=== PATIENT | male | born 1945 | race Caucasian/White ===

== ENCOUNTER 2019-01-23 12:07 | Inpatient (IN) | payer OTHER ==
[2019-01-23] MEDS ORDERED: ACETAMINOPHEN 325 MG TABLET PO PRN (12:36)
[2019-01-23] MEDS ORDERED: DIPHENHYDRAMINE 25 MG TAB/CAP PO PRN (12:36)
[2019-01-23] MEDS ORDERED: ONDANSETRON 4 MG (ODT) TAB PO PRN (12:37)
[2019-01-23] MEDS ORDERED: ONDANSETRON 4 MG/2 ML VIAL IV PRN (12:37)
[2019-01-23] MEDS ORDERED: POLYETHYL GLY 3350 17 GM/DOSE PO PRN (12:37)
[2019-01-23] MEDS ORDERED: CIPROFLOXACIN 400mg IV 400 MG/200 ML BAG IV SCH (13:00)
[2019-01-23 13:45] LABS: Protime INR 1.25
[2019-01-23 13:46] LABS: Absolute Monocytes 0.9 K/uL (0.1-1.3); Absolute Neutrophil 10.3 K/uL (1.8-8.0); Basophils % 0.2 % (0-1.3); Hematocrit 40.8 % (39.6-49.0); Lymphocytes % 7.8 % (15.3-44.8); MPV 8.3 fL (7.6-11.3); Monocytes % 7.7 % (3.3-12.3); RBC Red Blood Cell Count 4.61 M/uL (4.33-5.43)
[2019-01-23] MEDS: NACHLORIDE 0.45% 1,000 ML IV SCH ×2 (13:46→19:40)
[2019-01-23 14:29] LABS: Albumin 3.3 g/dL (3.4-5.0); Bilirubin Direct 0.3 mg/dL (0-0.2); Bilirubin Total 4.7 mg/dL (0.2-1.0); Phosphorus 1.4 mg/dL (2.5-4.9); Protein, Total 7.2 g/dL (6.4-8.2); Thyroid Stimulating Hormone 1.43 uIU/mL (0.360-3.740)
[2019-01-23 14:35] LABS: Potassium 2.9 mmol/L (3.5-5.1)
[2019-01-23 14:41] LABS: Blood Morphology Comment NOT SEEN (NOT SEEN); Platelet Estimate ADEQ
[2019-01-23] MEDS ORDERED: KCL 20 MEQ/100 mL IVPB 20 MEQ/100 ML BAG IV SCH ×2 (15:00)
--- NOTE | 2019-01-23 16:35 | RAD REPORT ---
EXAM DESCRIPTION: RAD - Chest Pa And Lat (2 Views) - 01/23/2019 3:13 pm CLINICAL HISTORY: FEVER, ABD PAIN Chest pain. COMPARISON: No comparisons FINDINGS: Moderate airspace opacity is seen in the posterior right lung base, likely representing pn eumonia. The lungs are emphysematous. The heart is normal in size. No displaced fractures. IMPRESSION: Moderate right posterior base pneumonia.
--- NOTE | 2019-01-23 16:48 | RAD REPORT ---
EXAM DESCRIPTION: CTAbdomen Pelvis W Contrast - 01/23/2019 3:22 pm CLINICAL HISTORY: Abdominal pain. ABD PAIN; COMPARISON: Abdomen Pelvis W Contrast dated 05/02/2018; Abdomen Pelvis W Contrast dated 05/16/2016 TECHNIQUE: Biphasic CT imaging of the abdomen and pelvis was performed with 100 ml non-ionic IV cont rast. All CT scans are performed using dose optimization technique as appropriate and may include automated exposure control or mA/KV adjustment according to patient size. FINDINGS: Moderate airspace opacity is seen in the posterior right lower lobe, most compatible with pneumonia. Diffuse fatty liver is present. Small benign left lobe liver cyst present. The spleen, pancreas, adre nal glands normal. Bilateral renal cysts without hydronephrosis present. The largest cyst is on the l eft measuring 2.6 cm. No bowel obstruction, free air, free fluid or abscess. The appendix is normal. No evidence of signi ficant lymphadenopathy. No suspicious bony findings. IMPRESSION: Moderate airspace opacity in the posterior right lung base most compatible with pneumoni a. Fatty liver.
[2019-01-23] MEDS ORDERED: METRONIDAZOLE 500mg IVPB 500 MG/100 ML BAG IV SCH (17:00)
[2019-01-23] MEDS ORDERED: NA CHLORIDE 0.9% IV ONE ×2 (17:00)
[2019-01-23] MEDS ORDERED: POTASSIUM CL IV ONE ×2 (17:00)
[2019-01-23] MEDS: ENOXAPARIN 40 MG/0.4 ML SQ SCH (18:19)
[2019-01-23 20:18] LABS: Urine Appearance CLEAR; Urine Bilirubin NEGATIVE (NEG); Urine Blood TRACE (NEG); Urine Color YELLOW; Urine Glucose NEGATIVE (NEG); Urine Protein NEGATIVE (NEG); Urine Specific Gravity >=1.030 (1.005-1.030); Urine Urobilinogen 0.2 mg/dL (0.2-1.0)
[2019-01-23 20:19] LABS: Urine Microscopic Reflex ORDER UMIC
[2019-01-23 20:32] LABS: Urine Amorphous Sediment 1+ /HPF (NONE SEEN); Urine Bacteria NONE SEEN /HPF (NONE SEEN); Urine Culture Reflex Order NOT NEEDED; Urine RBC <5 /HPF (NONE SEEN)
[2019-01-23] MEDS ORDERED: TAMSULOSIN 0.4 MG SR CAP PO SCH (21:00)
[2019-01-23] MEDS ORDERED: CEFTRIAXONE 1 GM/50 ML BAG IV SCH (21:00)
[2019-01-23] MEDS: LOPERAMIDE HCL 2 MG CAPSULE PO PRN (22:02)
[2019-01-23] MEDS: CARVEDILOL 6.25 MG TAB PO SCH (22:02)
[2019-01-23] MEDS: ASPIRIN EC 81 MG TAB PO SCH (22:02)
[2019-01-23] MEDS ORDERED: AZITHROMYCIN 500 MG INJ IVPB ONE (22:18)
[2019-01-23] MEDS ORDERED: NA CHLORIDE 0.9% 250 ML ONE (22:23)
[2019-01-23] MEDS: CEFTRIAXONE/SWI 1gm 1 GM/10 ML SYR IV SCH (22:27)
[2019-01-23] MEDS: AZITHROMYCIN IV 500 MG in NA CHLORIDE 0.9% 250 ML IVPB SCH (23:06)
[2019-01-24] MEDS: NACHLORIDE 0.45% 1,000 ML IV SCH ×4 (02:20→22:20)
[2019-01-24 05:44] LABS: Absolute Lymphocytes (CBC) 1.4 K/uL (0.7-4.9); Absolute Monocytes 1.2 K/uL (0.1-1.3); Absolute Neutrophil 8.4 K/uL (1.8-8.0); Basophils % 0.3 % (0-1.3); Eosinophils % 0.5 % (0-4.4); Hematocrit 36.5 % (39.6-49.0); Lymphocytes % 12.8 % (15.3-44.8); MPV 8.8 fL (7.6-11.3); Monocytes % 10.9 % (3.3-12.3); RBC Red Blood Cell Count 4.08 M/uL (4.33-5.43)
[2019-01-24] MEDS: CARVEDILOL 6.25 MG TAB PO SCH ×2 (06:22→17:52)
[2019-01-24 06:41] LABS: Potassium 2.9 mmol/L (3.5-5.1)
--- NOTE | 2019-01-24 06:44 | EKG ---
Test Date: 2019-01-23 Test Time: 13:14:15 Manager Cath Lab: [facility] MEASUREMENT RESULTS: Intervals: Rate: 86 TN: 136 QRSD: 98 QT: 370 QTc: 442 Surprise: P: 32 TN: 136 QRS: -27 T: 21 INTERPRETIVE STATEMENTS: Normal sinus rhythm Normal ECG No previous ECG available for comparison Electronically Signed On 01-24-19 06:42:29 CDT by Rito Javier
[2019-01-24] MEDS: KCL 20 MEQ/100 mL IVPB 20 MEQ/100 ML BAG IV SCH ×3 (07:42→12:20)
[2019-01-24] MEDS: LOPERAMIDE HCL 2 MG CAPSULE PO PRN ×2 (09:01→21:20)
--- NOTE | 2019-01-24 14:37 | P.PN ---
Subjective Date of Service: 01/24/19 Chief Complaint: DIZZY WHEN HE EATS. COUGH STARTED LAST NIGHT. Subjective: Improving GEORGES IS DOING A LOT BETTER. HE DID NOT HAVE COUGH UNTIL HE CAME HERE. HE HAS SOME MUCUS IN STOOL. Review of Systems 10-point ROS is otherwise unremarkable General: Weakness, Malaise Respiratory: Cough Physical Examination - Vital Signs Temperature: 99.4 F Blood Pressure: 115/61 Pulse: 56 Respirations: 18 Pulse Ox (%): 97 - Physical Exam General: Alert, Acute distress, Mild distress, Obese HEENT: Atraumatic, PERRLA, EOMI Neck: Supple, JVD not distended Respiratory: Clear to auscultation bilaterally, Normal air movement Cardiovascular: Regular rate/rhythm, Normal S1 S2 Gastrointestinal: Normal bowel sounds, No tenderness Musculoskeletal: No tenderness Integumentary: No rashes Neurological: Normal speech, Normal tone, Normal affect Lymphatics: No axilla or inguinal lymphadenopathy - Studies Laboratory Data (last 24 hrs) 01/24/19 04:48: Potassium Cancelled 01/24/19 04:48: Sodium 139, Potassium 2.9 L*, BUN 25 H, Creatinine 1.46 H, Glucose 110 H, Magnesium 2.0 01/24/19 04:48: WBC 11.1 H, Hgb 12.5 L, Hct 36.5 L, Plt Count 183 01/23/19 23:00: Potassium Cancelled 01/23/19 20:00: Potassium Cancelled 01/23/19 13:05: Sodium 138, Potassium 2.9 L*, BUN 20 H, Creatinine 1.53 H, Glucose 165 H, Phosphorus 1.4 L, Magnesium 2.0, Total Bilirubin 4.7 H, AST 14 L , ALT 15, Alkaline Phosphatase 63 Microbiology Data (last 24 hrs): 01/23/19 17:30 Stool Clostridium difficile Toxin Assay - Final Medications List Reviewed: Yes Assessment And Plan - Current Problems (Diagnosis) (1) Bacterial pneumonia Current Visit: Yes Status: Acute Plan: UNUSUAL PRESENTATION WITH RUQ ABDOMEN PAIN. HEHAD NO COUGH UNTIL AFTER ADMISSION. LAST NIGHT I CHANGED ABX TO COVER LUNGS. STABLE (2) Abdominal pain, RUQ Current Visit: Yes Status: Acute Plan: CT SCAN SHOWS NO ABDOMEN ISSUES. R LOWER PNEUMONIA CAN HURT IN RUQ ABDOMEN PAIN. (3) Hypokalemia Current Visit: Yes Status: Acute Plan: K REPLACED.
[2019-01-24] MEDS: ENOXAPARIN 40 MG/0.4 ML SQ SCH (17:52)
[2019-01-24] MEDS ORDERED: POTASSIUM 25 MEQ EFFERV TAB PO ONE (18:00)
[2019-01-24] MEDS: TAMSULOSIN 0.4 MG SR CAP PO SCH (21:00)
[2019-01-24] MEDS: ASPIRIN EC 81 MG TAB PO SCH (21:20)
[2019-01-24] MEDS: AZITHROMYCIN IV 500 MG in NA CHLORIDE 0.9% 250 ML IVPB SCH (21:21)
[2019-01-24] MEDS: CEFTRIAXONE/SWI 1gm 1 GM/10 ML SYR IV SCH (21:21)
[2019-01-25] MEDS ORDERED: POTASSIUM 25 MEQ EFFERV TAB PO ONE ×2 (01:43→09:00)
[2019-01-25] MEDS: NACHLORIDE 0.45% 1,000 ML IV SCH ×3 (02:18→23:33)
[2019-01-25] MEDS: CARVEDILOL 6.25 MG TAB PO SCH ×2 (05:47→18:00)
[2019-01-25 06:25] LABS: Absolute Lymphocytes (CBC) 1.3 K/uL (0.7-4.9); Absolute Neutrophil 6.4 K/uL (1.8-8.0); Basophils % 0.4 % (0-1.3); Eosinophils % 2.1 % (0-4.4); Hematocrit 36.1 % (39.6-49.0); Lymphocytes % 14.8 % (15.3-44.8); MPV 8.9 fL (7.6-11.3); Monocytes % 11.5 % (3.3-12.3); RBC Red Blood Cell Count 4.09 M/uL (4.33-5.43)
[2019-01-25 06:43] LABS: Magnesium 2.3 mg/dL (1.8-2.4); Potassium 3.6 mmol/L (3.5-5.1)
[2019-01-25] MEDS: LOPERAMIDE HCL 2 MG CAPSULE PO PRN (08:45)
[2019-01-25] MEDS ORDERED: SODIUM CHLORIDE 0.9% 10ML INJ IV PRN (10:23)
--- NOTE | 2019-01-25 10:23 | P.PN ---
Subjective Date of Service: 01/25/19 Chief Complaint: DIZZY WHEN HE EATS. COUGH STARTED LAST NIGHT. Subjective: New changes, C/O voiced (BLACK DIARRHEA. COUGH IS BETTER.) GEORGES IS DOING A LOT BETTER. HE DID NOT HAVE COUGH UNTIL HE CAME HERE. HE HAS SOME MUCUS IN STOOL. Review of Systems 10-point ROS is otherwise unremarkable General: Weakness Gastrointestinal: Abdominal Pain (RUQ AND LLQ.) Physical Examination - Vital Signs Temperature: 99.1 F Blood Pressure: 126/65 Pulse: 76 Respirations: 18 Pulse Ox (%): 96 - Physical Exam General: Alert, Mild distress HEENT: Atraumatic, PERRLA, EOMI Neck: Supple, JVD not distended Respiratory: Clear to auscultation bilaterally, Normal air movement Cardiovascular: Regular rate/rhythm, Normal S1 S2 Gastrointestinal: Normal bowel sounds, No tenderness Musculoskeletal: No tenderness Integumentary: No rashes Neurological: Normal speech, Normal tone, Normal affect Lymphatics: No axilla or inguinal lymphadenopathy - Studies Laboratory Data (last 24 hrs) 01/25/19 05:42: Sodium 142, Potassium 3.6, BUN 15, Creatinine 1.04, Glucose 106 , Magnesium 2.3 01/25/19 05:42: WBC 8.9 D, Hgb 12.7 L, Hct 36.1 L, Plt Count 217 01/25/19 01:25: Potassium 3.5 01/24/19 16:20: Potassium 3.4 L Microbiology Data (last 24 hrs): 01/23/19 17:30 Stool Clostridium difficile Toxin Assay - Final Medications List Reviewed: Yes Assessment And Plan - Current Problems (Diagnosis) (1) Bacterial pneumonia Current Visit: Yes Status: Acute Plan: UNUSUAL PRESENTATION WITH RUQ ABDOMEN PAIN. HEHAD NO COUGH UNTIL AFTER ADMISSION. LAST NIGHT I CHANGED ABX TO COVER LUNGS. STABLE CLINICALLY STABLE. NO MAJOR SYMPTOMS FROM THIS EXCEPT FOR RUQ ABDOMEN PAIN. RESUME ABX., (2) Abdominal pain, RUQ Current Visit: Yes Status: Acute Plan: CT SCAN SHOWS NO ABDOMEN ISSUES. R LOWER PNEUMONIA CAN HURT IN RUQ ABDOMEN PAIN. (3) Hypokalemia Current Visit: Yes Status: Acute Plan: K REPLACED. (4) Diarrhea Current Visit: Yes Status: Acute Plan: BLACK COLORED. IV PROTONIX. CONSULT DR. PATINO. RULE OUT GI BLEED. NO SIGNS OF ANY ACUTE ISSUES ON CT SCAN.
[2019-01-25] MEDS: PANTOPRAZOLE 40 MG INJ IVP SCH (14:12)
[2019-01-25] MEDS: CEFTRIAXONE/SWI 1gm 1 GM/10 ML SYR IV SCH (20:14)
[2019-01-25] MEDS: AZITHROMYCIN IV 500 MG in NA CHLORIDE 0.9% 250 ML IVPB SCH (20:14)
[2019-01-25] MEDS: TAMSULOSIN 0.4 MG SR CAP PO SCH (20:15)
[2019-01-26] MEDS: CARVEDILOL 6.25 MG TAB PO SCH (05:31)
[2019-01-26 06:21] LABS: Absolute Lymphocytes (CBC) 1.4 K/uL (0.7-4.9); Absolute Monocytes 1.2 K/uL (0.1-1.3); Absolute Neutrophil 5.4 K/uL (1.8-8.0); Basophils % 0.3 % (0-1.3); Eosinophils % 2.3 % (0-4.4); Hematocrit 38.1 % (39.6-49.0); Lymphocytes % 17.3 % (15.3-44.8); MPV 8.5 fL (7.6-11.3); Monocytes % 14.2 % (3.3-12.3)
[2019-01-26 06:32] LABS: Magnesium 2.3 mg/dL (1.8-2.4); Potassium 3.1 mmol/L (3.5-5.1)
[2019-01-26] MEDS ORDERED: POTASSIUM 25 MEQ EFFERV TAB PO ONE ×2 (06:46→09:00)
[2019-01-26] MEDS ORDERED: PANTOPRAZOLE 40 MG INJ IVP SCH (09:00)
[2019-01-26] MEDS: PANTOPRAZOLE 40 MG INJ IVP SCH (09:50)
--- NOTE | 2019-01-28 17:45 | P.DS ---
Admission Date: 01/24/19 Discharge Date: 01/28/19 Disposition: ROUTINE DISCHARGE Discharge Condition: FAIR Reason for Admission: DIZZY WHEN HE EATS. COUGH STARTED LAST NIGHT. - Problems (1) Bacterial pneumonia Status: Acute (2) Abdominal pain, RUQ Status: Acute (3) Hypokalemia Status: Acute (4) Diarrhea Status: Acute Hospital Course: MR. WAY IS DOING GREAT. HE WILL CONTINUE LEVAQUIN AT HOME FOR ABX FOR PNEUMONIA. HIS DIARRHEA HAS RESOLVED. Vital Signs/Physical Exam: Temp Pulse Resp BP Pulse Ox 99.9 F 72 16 143/65 H 94 01/26/19 16:00 01/26/19 16:00 01/26/19 16:00 01/26/19 16:00 01/26/19 16:00 Laboratory Data at Discharge: WBC 8.2 K/uL (4.3-10.9) 01/26/19 05:35 Hgb 13.6 g/dL (13.6-17.9) 01/26/19 05:35 Hct 38.1 % (39.6-49.0) L 01/26/19 05:35 Plt Count 246 K/uL (152-406) 01/26/19 05:35 PT 14.6 SECONDS (9.5-12.5) H 01/23/19 13:05 INR 1.25 01/23/19 13:05 APTT 28.6 SECONDS (24.3-36.9) 01/23/19 13:05 Sodium 142 mmol/L (136-145) 01/26/19 05:35 Potassium 3.8 mmol/L (3.5-5.1) 01/26/19 14:57 BUN 9 mg/dL (7-18) 01/26/19 05:35 Creatinine 1.00 mg/dL (0.55-1.3) 01/26/19 05:35 Glucose 102 mg/dL (74-106) 01/26/19 05:35 Phosphorus 1.4 mg/dL (2.5-4.9) L 01/23/19 13:05 Magnesium 2.3 mg/dL (1.8-2.4) 01/26/19 05:35 Total Bilirubin 4.7 mg/dL (0.2-1.0) H 01/23/19 13:05 AST 14 U/L (15-37) L 01/23/19 13:05 ALT 15 U/L (12-78) 01/23/19 13:05 Alkaline Phosphatase 63 U/L (45-117) 01/23/19 13:05 Home Medications: Carvedilol [Coreg*] 6.25 mg PO BID 04/27/15 Tamsulosin [Flomax*] 1 tab PO BEDTIME 01/23/19 Losartan Potassium 100 mg PO DAILY #90 tablet 01/26/19 levoFLOXacin [Levaquin*] 500 mg PO DAILY #10 tab 01/26/19 New Medications: levoFLOXacin [Levaquin*] 500 mg PO DAILY #10 tab Losartan Potassium 100 mg PO DAILY #90 tablet Followup: Timur Zhou MD [Primary Care Provider] - (call to schedule appointment)
== END 2019-01-26 18:04 | disposition home or self-care (01) | DRG 195 ==
LOC: 4TH 12:16 → OBSVTOIN 01-24 10:21
PROVIDERS: ADMIT Internal Medicine; ATTEND Internal Medicine
DX: J15.9 Unspecified bacterial pneumonia (principal); E86.0 Dehydration; R10.11 Right upper quadrant pain; E87.6 Hypokalemia; R19.7 Diarrhea, unspecified; I10 Essential (primary) hypertension; N40.0 Benign prostatic hyperplasia without lower urinary tract symptoms
CPT/HCPCS: 36415; 71046; 74177; 80048; 80076; 81003; 81015; 82274; 82306; 82607; 83605; 83735; 84100; 84132; 84145; 84443; 85025; 85610; 85730; 87040; 87045; 87046; 87177; 87209; 87493; 93005; C9113; G0378; G0379; J0456; J0696; J0744; J1650; Q9967